=== PATIENT | male | born 1990 | race Two or more races ===

== ENCOUNTER 2017-03-26 02:12 | Emergency (ER) | payer OTHER ==
[2017-03-31] MEDS ORDERED: ULTR50TA8 PO (09:50)
== END 2017-03-26 02:27 | disposition left against medical advice (07) ==
LOC: M ED 02:12
DX: R21 Rash and other nonspecific skin eruption (principal); Z53.29 Procedure and treatment not carried out because of patient's decision for other reasons

== ENCOUNTER 2017-03-31 07:15 | Emergency (ER) | payer OTHER ==
[~2017-03-31] VITALS: Ht 172.7 cm; Wt 113.6 kg
--- NOTE | 2017-03-31 09:27 | REP ---
Right lower extremity deep vein duplex ultrasound: The deep veins of the right lower extremity demonstrate normal compression, normal Doppler color flow and normal Doppler waveforms with respiration augmentation at multiple levels from the popliteal vein to the common femoral vein. Impression: There is no ultrasound evidence of deep vein thrombus in the right lower extremity. Signed by Dallas Wheat MD 03/31/2017 09:18 A
[2017-03-31] MEDS ORDERED: CLEO300C2 PO (09:50)
[2017-03-31] MEDS ORDERED: ULTR50TA PO (09:50)
[2017-03-31 09:55] VITALS: BP 137/82
== END 2017-03-31 10:09 | disposition home or self-care (01) ==
LOC: M ED 08:14
DX: L03.115 Cellulitis of right lower limb (principal); L40.9 Psoriasis, unspecified

== ENCOUNTER → 2017-12-16 | Outpatient (REF) | payer OTHER ==
[2017-12-16 20:42] LABS: BASO # 0.1 10^3/uL (0.0-0.2); EOS # 0.1 10^3/uL (0.0-0.50); EOS % 1.7 % (0.0-3.0); HEMATOCRIT 46.3 % (42.0-52.0); HEMOGLOBIN 15.2 g/dl (14.0-18.0); IMMATURE GRANULOCYTE % 0.4 % (0-3.0); LYMPH # 2.4 10^3/uL (1.5-6.5); LYMPH % 29.5 % (24.0-44.0); MEAN CORPUSCULAR HEMOGLOBIN 27.6 pg (27.0-33.0); MEAN CORPUSCULAR HGB CONC 32.8 g/dl (32.0-36.5); MEAN CORPUSCULAR VOLUME 84.2 fl (80.0-96.0); MONO % 11.9 % (0.0-5.0); NEUTROPHILS # 4.5 10^3/uL (1.8-7.7); NEUTROPHILS % 55.5 % (36.0-66.0); PLATELET COUNT, AUTOMATED 204 10^3/uL (150-450); RED CELL DISTRIBUTION WIDTH 13.6 % (11.5-14.5); WHITE BLOOD COUNT 8.1 10^3/uL (4.0-10.0)
[2017-12-16 21:00] LABS: ALBUMIN 4.2 GM/DL (3.2-5.2); ALBUMIN/GLOBULIN RATIO 1.05 (1.00-1.93); ALKALINE PHOSPHATASE 73 U/L (45-117); ALT/SGPT 58 U/L (12-78); ANION GAP 9 MEQ/L (8-16); AST/SGOT 30 U/L (7-37); BILIRUBIN,TOTAL 0.3 MG/DL (0.2-1.0); BLOOD UREA NITROGEN 17 MG/DL (7-18); CALCIUM LEVEL 9.8 MG/DL (8.5-10.1); CARBON DIOXIDE LEVEL 26 MEQ/L (21-32); CHLORIDE LEVEL 105 MEQ/L (98-107); CREATININE FOR GFR 1.03 MG/DL (0.70-1.30); GLOMERULAR FILTRATION RATE > 60.0 (>60); GLUCOSE, FASTING 83 MG/DL (70-100); POTASSIUM SERUM 4.6 MEQ/L (3.5-5.1); SODIUM LEVEL 140 MEQ/L (136-145); TOTAL PROTEIN 8.2 GM/DL (6.4-8.2)
[2017-12-17 11:58] LABS: HEPATITIS C VIRUS ABY INDEX 0.2 INDEX (<0.8)
[2017-12-17 11:59] LABS: HEPATITIS B CORE ANTIBODY IGM NEGATIVE (NEGATIVE)
[2017-12-17 12:00] LABS: HEPATITIS B SURFACE ANTIGEN NEGATIVE (NEGATIVE)
[2017-12-17 12:26] LABS: HEPATITIS A ANTIBODY IGM NEGATIVE (NEGATIVE)
[2017-12-17 12:27] LABS: HIV 1&2 SCREEN CENTAUR NEGATIVE (NEGATIVE)
[2017-12-18 15:11] LABS: QUANTIFERON GOLD TB Negative (Negative); TB Test (QFT) Antigen 0.03 IU/mL (.); TB Test (QFT) Antigen Minus Ni 0.01 IU/mL (.); TB Test (QFT) Mitogen >10.00 IU/mL (.); TB Test (QFT) Nil 0.02 IU/mL (.)
== END ==
LOC: M SFHCLERA 16:27
DX: L40.9 Psoriasis, unspecified (principal)
CPT/HCPCS: 86803

== ENCOUNTER 2019-01-20 23:17 | Emergency (ER) | payer OTHER, SELFPAY ==
[~2019-01-20] VITALS: Ht 175.3 cm; Wt 113.6 kg
[2019-01-20 23:17] VITALS: BP 157/84
[~2019-01-20 23:17] MED LIST: CLEO300C2 PO; ULTR50TA8 PO
[2019-01-20] MEDS ORDERED: GENTAMICIN 0.3% OPHTH SOL 5 ML BTL OS ONE (23:45)
[2019-01-20] MEDS ORDERED: KEFL500C17 PO (23:52)
[2019-01-21] MEDS ORDERED: CEPHALEXIN 500 MG CAP PO ONE
== END 2019-01-21 00:09 | disposition home or self-care (01) ==
LOC: M ED 23:17
DX: L03.116 Cellulitis of left lower limb (principal)

== ENCOUNTER 2019-06-05 03:07 | Emergency (ER) | payer OTHER, SELFPAY ==
[~2019-06-05] VITALS: Ht 172.7 cm; Wt 118.2 kg
[~2019-06-05 03:07] MED LIST changes: +KEFL500C17 PO
[2019-06-05] MEDS ORDERED: IBUP-1114 PO (03:31)
[2019-06-05] MEDS ORDERED: [UNRECOGNIZED DRUG - CODE] EX (06:08)
[2019-06-05 06:09] VITALS: BP 170/68
== END 2019-06-05 06:20 | disposition home or self-care (01) ==
LOC: M ED 03:07
DX: L40.9 Psoriasis, unspecified (principal)

== ENCOUNTER → 2020-02-07 | Outpatient (REF) | payer OTHER ==
[~2020-02-07] MED LIST changes: +IBUP-1114 PO; +[UNRECOGNIZED DRUG - CODE] EX
[2020-02-07 13:07] LABS: RHEUMATOID FACTOR QUANT < 10.0 IU/ML (<15.0)
[2020-02-07 13:19] LABS: HEPATITIS B SURFACE ANTIBODY POSITIVE (POSITIVE)
[2020-02-07 13:30] LABS: HEPATITIS B SURFACE ANTIGEN NEGATIVE (NEGATIVE)
[2020-02-07 13:56] LABS: HEPATITIS C VIRUS ABY INDEX 0.1 INDEX (<0.8)
[2020-02-07 13:57] LABS: HEPATITIS B CORE ANTIBODY IGM NEGATIVE (NEGATIVE)
[2020-02-07 13:58] LABS: HIV 1&2 SCREEN CENTAUR NEGATIVE (NEGATIVE)
[2020-02-07 13:59] LABS: HEPATITIS A ANTIBODY IGM NEGATIVE (NEGATIVE)
== END ==
LOC: M SFHCDERM 08:34
PROVIDERS: ATTEND Dermatology
DX: L40.9 Psoriasis, unspecified (principal)

== ENCOUNTER → 2020-05-01 | Outpatient (REF) | payer OTHER | LOC: M LAB REF 17:11 | PROVIDERS: ATTEND Physician Assistant | DX: Z03.818 Encounter for observation for suspected exposure to other biological agents ruled out (principal); Z11.3 Encounter for screening for infections with a predominantly sexual mode of transmission ==